=== PATIENT | female | born 1970 | race Caucasian/White ===

== ENCOUNTER 2020-11-25 13:47 | Inpatient (IN) | payer OTHER ==
[~2020-11-25] VITALS: Ht 157.5 cm; Wt 105.5 kg
[2020-11-25 16:28] LABS: BASOPHIL 0.2 % (0-2); EOSINOPHIL 0 % (0-5); HCT 43.4 % (37.0-47.0); LYMPHOCYTE 19.7 % (15-48); MCH 29.9 pg (25.0-31.0); MCHC 34.6 g/dL (32.0-36.0); MCV 86.5 fL (78.0-100.0); MPV 11.5 fL (6.0-9.5); NEUTROPHIL 73.4 % (41-80); NRBC 0; PLT 115 K/uL (150-400); RBC 5.02 M/uL (4.20-5.40); RDW 12.9 % (11.5-14.0)
[2020-11-25 16:29] LABS: WBC 4.2 K/uL (4.0-10.5)
[2020-11-25 17:00] LABS: ALBUMIN 2.8 g/dL (3.4-5.0); BILIRUBIN - TOTAL 0.4 mg/dL (0.2-1.0); BUN/CREAT RATIO (CALC) 16.4 RATIO; C-REACTIVE PROTEIN 11.8 mg/dL (<=0.90); CREATININE 0.61 mg/dL (0.51-0.95); GLOBULIN (CALCULATION) 4.3 g/dL; POTASSIUM 3.6 mmol/L (3.5-5.1); TOTAL PROTEIN 7.1 g/dL (6.4-8.2)
[2020-11-25 17:01] LABS: LACTIC ACID 1.3 mmol/L (0.4-1.9)
[2020-11-25] MEDS ORDERED: MOBIC7.5 MG PO (23:36)
[2020-11-25] MEDS ORDERED: GLUCOTROL XL5 MG PO (23:36)
[2020-11-25] MEDS ORDERED: OZEMPIC0.25 MG/0. IM (23:39)
[2020-11-26 06:24] LABS: BASOPHIL 0.4 % (0-2); EOSINOPHIL 0 % (0-5); HCT 41.6 % (37.0-47.0); LYMPHOCYTE 22.4 % (15-48); MCH 29.5 pg (25.0-31.0); MCHC 33.7 g/dL (32.0-36.0); MCV 87.6 fL (78.0-100.0); MONOCYTE 3.7 % (0-12); MPV 11.5 fL (6.0-9.5); NEUTROPHIL 71.9 % (41-80); NRBC 0; PLT 114 K/uL (150-400); RBC 4.75 M/uL (4.20-5.40); WBC 2.5 K/uL (4.0-10.5)
[2020-11-26 07:31] LABS: ALBUMIN 2.6 g/dL (3.4-5.0); BILIRUBIN - TOTAL 0.3 mg/dL (0.2-1.0); BUN/CREAT RATIO (CALC) 18.8 RATIO; C-REACTIVE PROTEIN 11.4 mg/dL (<=0.90); CREATININE 0.64 mg/dL (0.51-0.95); GLOBULIN (CALCULATION) 3.6 g/dL; MAGNESIUM 2.1 mg/dL (1.8-2.4); PHOSPHORUS 3.1 mg/dL (2.6-4.7); POTASSIUM 4.9 mmol/L (3.5-5.1); TOTAL PROTEIN 6.2 g/dL (6.4-8.2)
[2020-11-27 06:23] LABS: BASOPHIL 0.1 % (0-2); EOSINOPHIL 0 % (0-5); HCT 42.4 % (37.0-47.0); LYMPHOCYTE 14.9 % (15-48); MCH 29.2 pg (25.0-31.0); MCV 88.5 fL (78.0-100.0); MONOCYTE 5.8 % (0-12); MPV 11.3 fL (6.0-9.5); NEUTROPHIL 78.4 % (41-80); NRBC 0; PLT 152 K/uL (150-400); RBC 4.79 M/uL (4.20-5.40); RDW 13.2 % (11.5-14.0)
[2020-11-27 06:48] LABS: WBC 7.2 K/uL (4.0-10.5)
[2020-11-27 07:14] LABS: ALBUMIN 2.5 g/dL (3.4-5.0); BILIRUBIN - TOTAL 0.2 mg/dL (0.2-1.0); BUN/CREAT RATIO (CALC) 27.1 RATIO; CREATININE 0.48 mg/dL (0.51-0.95); GLOBULIN (CALCULATION) 4.1 g/dL; TOTAL PROTEIN 6.6 g/dL (6.4-8.2)
--- NOTE | 2020-11-28 14:33 | NUR ---
11/28/20 A referal was made to [facility] for 3 liters of 02 in anticipation of discharge on 11/29.
[2020-11-29 05:37] LABS: BASOPHIL 0.1 % (0-2); EOSINOPHIL 0 % (0-5); HCT 40.8 % (37.0-47.0); HGB 13.7 g/dl (12.5-16.0); LYMPHOCYTE 11.4 % (15-48); MCH 29.1 pg (25.0-31.0); MCHC 33.6 g/dL (32.0-36.0); MCV 86.8 fL (78.0-100.0); MONOCYTE 5.4 % (0-12); MPV 10.6 fL (6.0-9.5); NEUTROPHIL 81.6 % (41-80); NRBC 0; PLT 188 K/uL (150-400); RDW 12.9 % (11.5-14.0); WBC 7.9 K/uL (4.0-10.5)
[2020-11-29 06:09] LABS: BUN/CREAT RATIO (CALC) 26.1 RATIO; CREATININE 0.46 mg/dL (0.51-0.95); POTASSIUM 3.4 mmol/L (3.5-5.1)
[2020-11-29] MEDS ORDERED: DEXAMETHASONE6 MG PO (10:16)
[2020-11-29] MEDS ORDERED: VENTOLIN HFA IN18 GM INH (10:16)
== END 2020-11-29 11:45 | disposition home or self-care (01) | DRG 177 ==
LOC: FER 13:47 → FMS 21:45
PROVIDERS: Emergency Medicine Emergency Medical Services; Internal Medicine; Nurse Practitioner; ADMIT Internal Medicine
PROC: XW033E5 Introduction of Remdesivir Anti-infective into Peripheral Vein, Percutaneous Approach, New Technology Group 5 (ICD-10-PCS; principal; 2020-11-25)
PROC: 8E0ZXY6 Isolation (ICD-10-PCS; 2020-11-25)
DX: U07.1 COVID-19 (principal); J12.82 Pneumonia due to coronavirus disease 2019; J96.01 Acute respiratory failure with hypoxia; Z68.41 Body mass index [BMI] 40.0-44.9, adult; E11.65 Type 2 diabetes mellitus with hyperglycemia; E66.01 Morbid (severe) obesity due to excess calories; K76.0 Fatty (change of) liver, not elsewhere classified; M06.9 Rheumatoid arthritis, unspecified; Z91.040 Latex allergy status; Z88.2 Allergy status to sulfonamides; Z90.49 Acquired absence of other specified parts of digestive tract; Z90.89 Acquired absence of other organs; Z98.51 Tubal ligation status; Z83.3 Family history of diabetes mellitus; Z82.49 Family history of ischemic heart disease and other diseases of the circulatory system
CPT/HCPCS: 36415; 36600; 71275; 80048; 80053; 82728; 82803; 82962; 83605; 83615; 83735; 84100; 84145; 84484; 85025; 85379; 86140; 87040; 93005; 94010; 94640; 94664; 94760; 94762; C9399; J0696; J1100; J1650; J1885; J2405; J7030; J7050; J8540; U0002